=== PATIENT | male | born 1965 | race Caucasian/White ===

== ENCOUNTER → 2025-01-19 | Outpatient (BNVA) | payer MEDICAID, SELFPAY | END | disposition home or self-care (01) | PROVIDERS: PCP Nurse Practitioner Family; Referring Provider Nurse Practitioner Family; Visit Provider Urology | DX: N40.1 Benign prostatic hyperplasia with lower urinary tract symptoms (principal); N13.8 Other obstructive and reflux uropathy; R35.0 Frequency of micturition; R39.198 Other difficulties with micturition; N43.3 Hydrocele, unspecified; N52.9 Male erectile dysfunction, unspecified; Z80.42 Family history of malignant neoplasm of prostate; I10 Essential (primary) hypertension; E66.01 Morbid (severe) obesity due to excess calories; Z68.36 Body mass index [BMI] 36.0-36.9, adult | CPT/HCPCS: 81003; 99203; G0463 ==

== ENCOUNTER → 2025-03-02 | Outpatient (BNVA) | payer MEDICAID, SELFPAY | END | disposition home or self-care (01) | PROVIDERS: PCP Nurse Practitioner Family; Referring Provider Nurse Practitioner Family; Visit Provider Urology | DX: N40.1 Benign prostatic hyperplasia with lower urinary tract symptoms (principal); R39.12 Poor urinary stream; I10 Essential (primary) hypertension | CPT/HCPCS: 51741; 51798 ==

== ENCOUNTER → 2025-03-03 | Outpatient (CLI) | payer MEDICAID, SELFPAY ==
--- NOTE | 2025-03-03 14:00 | XR_ITS ---
Examination: Testicular sonography complete TECHNIQUE: Grayscale sonographic images testes, assessment arterial inflow venous outflow Doppler spectral analysis carful analysis Date and time: March 03, 2025 1350 hours INDICATIONS: Swelling left testicle 15 years. FINDINGS: Right testis 4.2 cm epididymis 2.4 cm Arterial flow testicle. No testicular mass Mild hydrocele with internal debris Left testis 3.8 cm epididymis 2.6 cm Arterial flow testicle. No testicular mass Moderate left lateral varicocele 4.3 cm hernia in the left inguinal region Moderate to large left hydrocele IMPRESSION: Bilateral epididymitis Moderate left varicocele 4.3 cm left inguinal hernia No testicular torsion or testicular mass Bilateral hydroceles
== END | disposition home or self-care (01) ==
PROVIDERS: PCP Nurse Practitioner Family; Referring Provider Urology; Visit Provider Urology
DX: N45.1 Epididymitis (principal); I86.1 Scrotal varices; K40.90 Unilateral inguinal hernia, without obstruction or gangrene, not specified as recurrent; N43.3 Hydrocele, unspecified
CPT/HCPCS: 76870